=== PATIENT | female | born 1990 | race African-American/Black ===

== ENCOUNTER 2019-02-14 21:22 | Emergency (ER) | payer MEDICAID ==
[~2019-02-14] VITALS: Ht 167.6 cm; Wt 68.0 kg
[2019-02-14 21:33] VITALS: BP 109/90
== END 2019-02-14 22:10 | disposition left against medical advice (07) ==
LOC: ER 21:22
DX: Z53.21 Procedure and treatment not carried out due to patient leaving prior to being seen by health care provider (principal)